=== PATIENT | female | born 1940 | race Caucasian/White ===

== ENCOUNTER → 2019-05-26 10:50 | Outpatient (BNVA) | payer OTHER, SELFPAY | PROVIDERS: Family Provider Family Medicine; PCP Family Medicine; Visit Provider Specialist | DX: G25.0 Essential tremor (principal) | CPT/HCPCS: 99214 ==

== ENCOUNTER 2023-08-20 12:29 | Outpatient (CLI) | payer OTHER, SELFPAY ==
--- NOTE | 2023-08-20 12:33 | XR_ITS ---
WS: [id number] SCREENING DEXA SCAN [employer] CLINICAL INFORMATION: SCREENING COMPARISON: None. FINDINGS: The L1-L4 bone mineral density measures 1.344 g/cm2. This corresponds to a T score score of 1.4 and Z score of 3.2. Left femoral neck bone mineral density measures 0.786 g/cm2. This corresponds to a T score of -1.8 an d Z score of 0.3. Right femoral neck bone mineral density measures 0.750 g/cm2. This corresponds to a T score -2.0of an d Z score of 0.1. Mean femoral neck bone mineral density measures 0.768 g/cm2. This corresponds to a T score of -1.9 an d Z score of 0.2. XR/XR DEXA axial skeleton* [id number] IMPRESSION: Normal bone mineralization lumbar spine. Osteopenia femoral necks. Patient's FRAX calculated 10 year probability for major osteoporotic fracture i s 22.2% and osteoporotic hip fracture is 8.8%.
== END 2023-08-20 12:30 | disposition home or self-care (01) ==
LOC: RAD 12:29
PROVIDERS: Family Provider Family Medicine; PCP Family Medicine; Visit Provider Nurse Practitioner
DX: M85.851 Other specified disorders of bone density and structure, right thigh (principal)
CPT/HCPCS: 77080